=== PATIENT | female | born 1965 | race Two or more races ===

== ENCOUNTER → 2022-05-31 07:53 | Outpatient (BNVA) | payer OTHER, SELFPAY | PROVIDERS: PCP Internal Medicine; Visit Provider Internal Medicine Rheumatology | DX: M17.11 Unilateral primary osteoarthritis, right knee (principal); M25.561 Pain in right knee; R76.8 Other specified abnormal immunological findings in serum | CPT/HCPCS: 99202 ==

== ENCOUNTER 2022-05-31 09:46 | Outpatient (REF) | payer OTHER, SELFPAY ==
[2022-05-31 11:30] LABS: C Reactive Protein < 0.10 mg/dL (< or = 0.50)
[2022-05-31 11:47] LABS: Erythrocyte Sedimentation Rate 8 MM/HR (0-20)
[2022-06-04 12:59] LABS: Anti DNA DS Antibody <1 IU/mL; SM/Ribonucleoprotein Ab <1.0 NEG AI (<1.0 NEG); Smith Protein <1.0 NEG AI (<1.0 NEG)
[2022-06-04 18:44] LABS: Lyme Abs Screen <0.90 index
== END 2022-05-31 09:47 | disposition home or self-care (01) ==
LOC: HO.10HDL 09:46
PROVIDERS: Visit Provider Internal Medicine Rheumatology
DX: M17.11 Unilateral primary osteoarthritis, right knee (principal); R76.8 Other specified abnormal immunological findings in serum; Z79.899 Other long term (current) drug therapy
CPT/HCPCS: 36415; 85652; 86140; 86225; 86235; 86617; 86618